=== PATIENT | male | born 1975 | race Caucasian/White ===

== ENCOUNTER 2018-09-25 01:26 | Emergency (ER) | payer OTHER ==
[~2018-09-25 01:26] MED LIST: ALPR-441 PO; BUSP7.5T7 PO; CLO5 PO; CYCL10TA29 PO; HYDR-4225 PO; IBUP800T37 PO; LOR1 PO; LORA-1455 PO; LORA-1456 PO; NO ROUTINE MEDS; OMEP-126 PO; PROM-110 PO; RANI150C17 PO; TYLENOL
--- NOTE | 2018-09-25 01:35 | ER Report ---
History and Physical Time Seen By MD: 01:35 HPI/ROS CHIEF COMPLAINT: Depression, PTSD HISTORY OF PRESENT ILLNESS: Patient is a 43-year-old male here with complaints of anxiety, manic bipolar suspected disorder, alcohol abuse. 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 For the past 5 days the patient reports that he has been drinking up to a case or more of beer until he passes out and then repeats the process. He does admit that he realizes that his alcohol consumption will likely reduce his life expectancy.. He is not currently followed by a therapist and has not been on antidepressants for several years. He was admitted once approximately 8 years ago in the inpatient setting for suicidal ideations. Patient is currently not on medications. Denies current suicidal or homicidal ideation REVIEW OF SYSTEMS: Constitutional: No fever, no chills. Eyes: No discharge. ENT: No sore throat. Cardiovascular: No chest pain, no palpitations. Respiratory: No cough, no shortness of breath. Gastrointestinal: No abdominal pain, no vomiting. Genitourinary: No hematuria. Musculoskeletal: No back pain. Skin: No rashes. Neurological: No headache. Psych: Alcohol abuse, transient suicidal thoughts in the past without plan Allergies: Coded Allergies: No Known Allergies (Unverified Allergy, Mild, 04/06/16) Home Meds Reported Medications Lorazepam (ATIVAN) 1 Mg Tablet, 1 MG PO Q4-6H PRN for ANXIETY 04/06/16 Buspirone Hcl (BUSPIRONE HCL) 7.5 Mg Tablet, 7.5 MG PO BID, #10 TAB 04/19/15 Hx Smoking: No Smoking Status: Never Smoker Exposure to Second Hand Smoke?: No Hx Substance Use Disorder: No Hx Alcohol Use: No Constitutional Vital Sign - Last 24 Hours 09/25/18 09/25/18 09/25/18 09/25/18 01:26 01:35 01:36 01:56 Temp 97.9 Pulse ??? 93 87 Resp 16 B/P (MAP) 133/94 (107) 133/94 Pulse Ox 92 94 O2 Delivery Room Air 09/25/18 09/25/18 09/25/18 09/25/18 02:00 02:26 02:30 02:56 Pulse 78 80 B/P (MAP) 118/78 (91) 120/87 (98) Pulse Ox 91 6/6/19 03:00 B/P (MAP) 119/81 (94) Physical Exam General Appearance: The patient is alert, has no immediate need for airway protection and no signs of toxicity. Depression, anxiety, PTSD Eyes: Pupils equal and round no pallor or injection. ENT, Mouth: Mucous membranes are moist. Respiratory: There are no retractions, lungs are clear to auscultation. Cardiovascular: Regular rate and rhythm. [ ] Gastrointestinal: Abdomen is soft and non tender, no masses, bowel sounds normal. Neurological: No focal neurological findings Skin: Warm and dry, no rashes. Musculoskeletal: Neck is supple non tender. Extremities are nontender, nonswollen and have full range of motion. Psych: Anxious appearing, admits to suicidal ideations at times in the past, excessive alcohol use DIFFERENTIAL DIAGNOSIS: After history and physical exam differential diagnosis was considered for depression, anxiety, alcohol abuse, PTSD, suicidal thoughts without plan Medical Decision Making Data Points Result Diagram: 09/25/18 0223 09/25/18 0223 Laboratory Hematology Test 09/25/18 01:30 09/25/18 02:23 Urine Color Yellow Urine Clarity Clear Urine pH 5.0 pH (4.8-9.5) Urine Specific [place] 1.016 Urine Protein Negative mg/dL (NEGATIVE) Urine Glucose (UA) Negative mg/dL (NEGATIVE) Urine Ketones Trace mg/dL (NEGATIVE) Urine Blood Negative (NEGATIVE) Urine Nitrite Negative (NEGATIVE) Urine Bilirubin Negative (NEGATIVE) Urine Urobilinogen Negative mg/dL (0.2-1.9) Urine Leukocyte Esterase Negative (NEGATIVE) Urine RBC <1 /HPF (0-2/HPF) Urine WBC 2 /HPF (0-5/HPF) Urine Squamous Epithelial Cells Moderate /LPF (</=FEW) Urine Bacteria Negative /HPF (NONE-FEW) Urine Hyaline Casts Few /LPF (NONE-FEW) Urine Mucus Few /HPF (NONE-FEW) Urine Opiates Screen Negative Urine Barbiturates Screen Negative Ur Tricyclic Antidepressants Screen Negative Urine Phencyclidine Screen Negative Urine Amphetamines Screen Negative Urine Benzodiazepines Screen Negative Urine Cocaine Screen Negative Urine Cannabinoids Screen Negative Red Blood Count 5.60 M/uL (4.00-5.60) Mean Corpuscular Volume 92.9 fL (80.0-96.0) Mean Corpuscular Hemoglobin 31.2 pg (26.0-33.0) Mean Corpuscular Hemoglobin Concent 33.6 g/dL (32.0-36.0) Red Cell Distribution Width 14.3 % (11.5-14.5) Mean Platelet Volume 7.2 fL (7.2-11.1) Neutrophils (%) (Auto) 66.1 % (39.4-72.5) Lymphocytes (%) (Auto) 25.7 % (17.6-49.6) Monocytes (%) (Auto) 5.7 % (4.1-12.4) Eosinophils (%) (Auto) 1.7 % (0.4-6.7) Basophils (%) (Auto) 0.8 % (0.3-1.4) Nucleated RBC Relative Count (auto) 0.3 /100WBC Neutrophils # (Auto) 4.2 K/uL (2.0-7.4) Lymphocytes # (Auto) 1.6 K/uL (1.3-3.6) Monocytes # (Auto) 0.4 K/uL (0.3-1.0) Eosinophils # (Auto) 0.1 K/uL (0.0-0.5) Basophils # (Auto) 0.1 K/uL (0.0-0.1) Nucleated RBC Absolute Count (auto) 0.02 K/uL Sodium Level 142 mmol/L (137-145) Potassium Level 4.5 mmol/L (3.5-5.0) Chloride Level 102 mmol/L (98-107) Carbon Dioxide Level 24 mmol/L (22-30) Blood Urea Nitrogen 12 mg/dl (9-21) Creatinine 1.00 mg/dl (0.66-1.25) Glomerular Filtration Rate Calc > 60.0 Random Glucose 88 mg/dl (75-110) Calcium Level 9.0 mg/dl (8.4-10.2) Magnesium Level 2.0 mg/dl (1.7-2.2) Total Bilirubin 0.6 mg/dl (0.2-1.3) Aspartate Amino Transf (AST/SGOT) 150 U/L (0-35) Alanine Aminotransferase (ALT/SGPT) 219 U/L (0-56) Alkaline Phosphatase 74 U/L (0-126) Total Protein 8.2 g/dl (6.3-8.2) Albumin 4.5 g/dl (3.5-5.0) Salicylates Level < 10 mg/L Salicylate Last Dose Date unknown Acetaminophen Level < 10 ug/ml Serum Alcohol 243 mg/dl Chemistry Test 09/25/18 01:30 09/25/18 02:23 Urine Color Yellow Urine Clarity Clear Urine pH 5.0 pH (4.8-9.5) Urine Specific [place] 1.016 Urine Protein Negative mg/dL (NEGATIVE) Urine Glucose (UA) Negative mg/dL (NEGATIVE) Urine Ketones Trace mg/dL (NEGATIVE) Urine Blood Negative (NEGATIVE) Urine Nitrite Negative (NEGATIVE) Urine Bilirubin Negative (NEGATIVE) Urine Urobilinogen Negative mg/dL (0.2-1.9) Urine Leukocyte Esterase Negative (NEGATIVE) Urine RBC <1 /HPF (0-2/HPF) Urine WBC 2 /HPF (0-5/HPF) Urine Squamous Epithelial Cells Moderate /LPF (</=FEW) Urine Bacteria Negative /HPF (NONE-FEW) Urine Hyaline Casts Few /LPF (NONE-FEW) Urine Mucus Few /HPF (NONE-FEW) Urine Opiates Screen Negative Urine Barbiturates Screen Negative Ur Tricyclic Antidepressants Screen Negative Urine Phencyclidine Screen Negative Urine Amphetamines Screen Negative Urine Benzodiazepines Screen Negative Urine Cocaine Screen Negative Urine Cannabinoids Screen Negative White Blood Count 6.4 k/uL (4.5-11.0) Red Blood Count 5.60 M/uL (4.00-5.60) Hemoglobin 17.5 g/dL (14.0-18.0) Hematocrit 52.0 % (42.0-52.0) Mean Corpuscular Volume 92.9 fL (80.0-96.0) Mean Corpuscular Hemoglobin 31.2 pg (26.0-33.0) Mean Corpuscular Hemoglobin Concent 33.6 g/dL (32.0-36.0) Red Cell Distribution Width 14.3 % (11.5-14.5) Platelet Count 269 K/uL (150-450) Mean Platelet Volume 7.2 fL (7.2-11.1) Neutrophils (%) (Auto) 66.1 % (39.4-72.5) Lymphocytes (%) (Auto) 25.7 % (17.6-49.6) Monocytes (%) (Auto) 5.7 % (4.1-12.4) Eosinophils (%) (Auto) 1.7 % (0.4-6.7) Basophils (%) (Auto) 0.8 % (0.3-1.4) Nucleated RBC Relative Count (auto) 0.3 /100WBC Neutrophils # (Auto) 4.2 K/uL (2.0-7.4) Lymphocytes # (Auto) 1.6 K/uL (1.3-3.6) Monocytes # (Auto) 0.4 K/uL (0.3-1.0) Eosinophils # (Auto) 0.1 K/uL (0.0-0.5) Basophils # (Auto) 0.1 K/uL (0.0-0.1) Nucleated RBC Absolute Count (auto) 0.02 K/uL Glomerular Filtration Rate Calc > 60.0 Calcium Level 9.0 mg/dl (8.4-10.2) Magnesium Level 2.0 mg/dl (1.7-2.2) Total Bilirubin 0.6 mg/dl (0.2-1.3) Aspartate Amino Transf (AST/SGOT) 150 U/L (0-35) Alanine Aminotransferase (ALT/SGPT) 219 U/L (0-56) Alkaline Phosphatase 74 U/L (0-126) Total Protein 8.2 g/dl (6.3-8.2) Albumin 4.5 g/dl (3.5-5.0) Salicylates Level < 10 mg/L Salicylate Last Dose Date unknown Acetaminophen Level < 10 ug/ml Serum Alcohol 243 mg/dl Toxicology Test 09/25/18 01:30 09/25/18 02:23 Urine Opiates Screen Negative Urine Barbiturates Screen Negative Ur Tricyclic Antidepressants Screen Negative Urine Phencyclidine Screen Negative Urine Amphetamines Screen Negative Urine Benzodiazepines Screen Negative Urine Cocaine Screen Negative Urine Cannabinoids Screen Negative Salicylates Level < 10 mg/L Salicylate Last Dose Date unknown Acetaminophen Level < 10 ug/ml Serum Alcohol 243 mg/dl Urinalysis Test 09/25/18 01:30 Urine Color Yellow Urine Clarity Clear Urine pH 5.0 pH (4.8-9.5) Urine Specific [place] 1.016 Urine Protein Negative mg/dL (NEGATIVE) Urine Glucose (UA) Negative mg/dL (NEGATIVE) Urine Ketones Trace mg/dL (NEGATIVE) Urine Blood Negative (NEGATIVE) Urine Nitrite Negative (NEGATIVE) Urine Bilirubin Negative (NEGATIVE) Urine Urobilinogen Negative mg/dL (0.2-1.9) Urine Leukocyte Esterase Negative (NEGATIVE) Urine RBC <1 /HPF (0-2/HPF) Urine WBC 2 /HPF (0-5/HPF) Urine Squamous Epithelial Cells Moderate /LPF (</=FEW) Urine Bacteria Negative /HPF (NONE-FEW) Urine Hyaline Casts Few /LPF (NONE-FEW) Urine Mucus Few /HPF (NONE-FEW) ED Course/Re-evaluation ED Course Patient is a 43-year-old male here with complaints of depression, anxiety, vague reports of suicidal ideations, PTSD history with background. Patient reports excessive alcohol use binging and passing out for the past 5 days. Patient was evaluated by the behavioral health component technician and denied current suicidal or homicidal ideations. Patient clarified that he does not wish to harm himself or and his life and that he would be willing to contract for safety, have a follow-up appointment tomorrow with PCP, stay with his girlfriend at her house where there is no alcohol present and return promptly if he develops thoughts of harming self or others. Patient was given outpatient resources of the behavioral health component technician. Alcohol level is 243 with no other positive tox screen. Patient is given prescription for hydroxyzine prior to discharge as it wouldn't currently be inappropriate to send with prescription for benzodiazepines with his current alcohol abuse history. Labs remarkable for transaminitis consistent with alcohol abuse. Patient denied suicidal or homicidal ideations prior to discharge. Decision to Disposition Date: Sep 25, 2018 Decision to Disposition Time: 03:33 Depart Departure Latest Vital Signs Vital Signs Date Time Temp Pulse Resp B/P (MAP) Pulse Ox O2 Delivery O2 Flow Rate FiO2 09/25/18 03:00 119/81 (94) 09/25/18 02:56 80 09/25/18 02:26 91 09/25/18 01:36 97.9 16 Room Air Impression: Primary Impression: Alcohol abuse Additional Impressions: Anxiety PTSD (post-traumatic stress disorder) Condition: Improved Disposition: HOME OR SELF-CARE Referrals: CLOTILDE MITCHELL DO (PCP) Patient Instructions: Abuse of Alcohol (ED), Anxiety (ED) Additional Instructions: Please follow up closely with your family doctor. You may take hydroxyzine 1 tablet every 6-8 hours as needed for anxiety. Please consider alcohol cessation. Please return promptly if you develop thoughts of harming herself or others, w orsening depression. Problem Qualifiers BATOOL TALAVERA DO Sep 25, 2018 01:35
[2018-09-25 02:32] LABS: PLATELET COUNT, AUTOMATED 269 K/uL (150-450)
[2018-09-25] MEDS ORDERED: THIAMINE HCL 100 MG TAB PO ONE (02:40)
[2018-09-25] MEDS ORDERED: FOLIC ACID 1 MG TAB PO ONE (02:40)
[2018-09-25] MEDS ORDERED: LORazepam 1 MG TAB PO ONE (02:40)
[2018-09-25 03:00] VITALS: BP 119/81
== END 2018-09-25 03:49 | disposition home or self-care (01) ==
LOC: ER 01:39
DX: F10.10 Alcohol abuse, uncomplicated (principal); Y90.8 Blood alcohol level of 240 mg/100 ml or more; F41.9 Anxiety disorder, unspecified; F43.10 Post-traumatic stress disorder, unspecified; F31.9 Bipolar disorder, unspecified
CPT/HCPCS: 36415; 80305; 80320; 80329; 81001; 82040; 82247; 82310; 82374; 82435; 82565; 82947; 83735; 84075; 84132; 84155; 84295; 84443; 84450; 84460; 84520; 85025; 99283